=== PATIENT | female | born 1990 | race Caucasian/White ===

== ENCOUNTER 2020-09-16 08:46 | Emergency (ER) | payer BC ==
[2020-09-16 10:02] LABS: HEMOGLOBIN 12.3 gm/dl (12.3-15.3); RED BLOOD COUNT 4.26 M/UL (4.00-5.10); WHITE BLOOD COUNT 4.5 K/UL (4.5-11.0)
[2020-09-16 10:24] LABS: BUN/CREATININE RATIO 17 (0-10)
[2020-09-16] MEDS ORDERED: VALTREX1000 MG PO (10:39)
[2020-09-16] MEDS ORDERED: PREDNISONE20 MG PO (10:39)
== END 2020-09-16 11:25 | disposition home or self-care (01) ==
LOC: ER1 08:46
PROVIDERS: Physician Assistant
DX: G51.0 Bell's palsy (principal)
CPT/HCPCS: 36415; 70450; 80053; 85025; 99284

== ENCOUNTER → 2020-11-22 | Outpatient (CLI) | payer BC ==
[~2020-11-22] MED LIST: PREDNISONE20 MG PO; VALTREX1000 MG PO
== END ==
LOC: EMI 11-19 16:00
DX: Q04.8 Other specified congenital malformations of brain (principal); G44.89 Other headache syndrome; R90.89 Other abnormal findings on diagnostic imaging of central nervous system
CPT/HCPCS: 70551